=== PATIENT | male | born 1985 | race Caucasian/White ===

== ENCOUNTER 2023-01-09 06:45 | Day surgery (SDC) | payer OTHER ==
[2023-01-09] VITALS (224 sets, daily range): BP systolic 83–165; BP diastolic 38–104
[~2023-01-09] VITALS: Ht 182.9 cm; Wt 111.0 kg
[2023-01-09 08:03] LABS: HEMATOCRIT 45.3 % (39.0-50.0); HEMOGLOBIN 14.5 g/dl (14.0-18.0); IMMATURE GRANULOCYTES 0.4 % (0.0-5.0); LYMPH% 23.2 % (15-41); MEAN CELL VOLUME 82.7 fL CALC (80.0-100.0); MEAN CORPUSCULAR HGB 26.5 pG CALC (26.0-32.0); MONO% 7.7 % (2-13); NEUT# 3.82 thou/uL (1.82-7.42); NEUT% 68.7 % (42-76); RED BLOOD COUNT 5.48 mill/uL (4.70-6.10); RED CELL DISTRI WIDTH 13.3 % (11.5-15.5)
[2023-01-09 08:16] LABS: ALBUMIN 4.7 g/dL (3.2-5.0); ALKALINE PHOSPHATASE 112 u/l (38-126); ANION GAP 13 (6-22 (CALC)); BILIRUBIN, TOTAL 0.3 mg/dL (0.2-1.3); BUN 14 mg/dL (9-20); BUN/CREATININE RATIO 22 (12-20 (CALC)); CARBON DIOXIDE 31 mmol/l (22-30); CHLORIDE 102 mmol/l (95-108); CREATININE 0.7 mg/dL (0.7-1.3); GFR FOR AFR.AMER. > 60 ML/MIN (>=60 (CALC)); GFR OTHER RACES > 60 ML/MIN (>=60 (CALC)); POTASSIUM 3.9 mmol/l (3.5-5.1); SGOT/AST 36 u/l (17-59); SODIUM 141 mmol/l (137-146); TOTAL PROTEIN 7.3 g/dL (6.3-8.2)
[2023-01-09] MEDS ORDERED: NALTREXONE50 MG PO (14:43)
[2023-01-09] MEDS ORDERED: CLONIDINE0.1 MG PO (14:43)
[2023-01-09] MEDS ORDERED: KLONOPIN2 MG PO (14:44)
[2023-01-10 04:00] VITALS: BP 147/71
[2023-01-10 06:06] LABS: ALBUMIN 4.1 g/dL (3.2-5.0); ALKALINE PHOSPHATASE 102 u/l (38-126); BUN 11 mg/dL (9-20); BUN/CREATININE RATIO 18 (12-20 (CALC)); CARBON DIOXIDE 26 mmol/l (22-30); CHLORIDE 99 mmol/l (95-108); CREATININE 0.6 mg/dL (0.7-1.3); GFR FOR AFR.AMER. > 60 ML/MIN (>=60 (CALC)); GFR OTHER RACES > 60 ML/MIN (>=60 (CALC)); MAGNESIUM 2.1 mg/dL (1.6-2.3); POTASSIUM 3.4 mmol/l (3.5-5.1); SGOT/AST 31 u/l (17-59); TOTAL PROTEIN 6.5 g/dL (6.3-8.2)
[2023-01-10 06:07] LABS: ANION GAP 11 (6-22 (CALC)); BILIRUBIN, TOTAL 0.5 mg/dL (0.2-1.3); SODIUM 133 mmol/l (137-146)
[2023-01-10 07:07] VITALS: BP 136/63
[2023-01-10 09:25] VITALS: BP 136/63
== END 2023-01-10 19:08 | disposition home or self-care (01) | DRG 897 ==
LOC: MS2 06:45 → ANR 06:45 → MS2 07:30 → ANR 12:00 → MS2 01-10 19:08
PROVIDERS: ATTEND Anesthesiology
DX: F11.20 Opioid dependence, uncomplicated (principal)
CPT/HCPCS: J0131; J2354; J3475